=== PATIENT | female | born 1940 | race Caucasian/White ===

== ENCOUNTER → 2016-08-17 | Outpatient (REF) ==
[~2016-08-17] MED LIST: AMBIEN 10MG10 MG PO; MIRALAX 255 GM255 GM PO; PRILOSEC 20MG20 MG PO; SYNTHROID0.05 MG/TA PO; SYNTHROID0.075 MG/T PO
== END ==
LOC: ZLAB.WCH 15:41
DX: Z01.89 Encounter for other specified special examinations (principal)

== ENCOUNTER → 2017-08-24 | Outpatient (REF) | LOC: ZLAB.WCH 17:56 | DX: Z01.89 Encounter for other specified special examinations (principal) ==

== ENCOUNTER → 2018-02-08 | Outpatient (REF) ==
[2018-02-08 19:34] LABS: THYROID STIMULATING HORMONE 2.98 uIU/mL (0.465-4.680)
== END ==
LOC: ZLAB.WCH 18:18
PROVIDERS: Physician Assistant
DX: Z01.89 Encounter for other specified special examinations (principal)

== ENCOUNTER → 2018-09-04 | Outpatient (REF) ==
[2018-09-04 15:01] LABS: THYROID STIMULATING HORMONE 3.78 uIU/mL (0.465-4.680)
== END ==
LOC: ZLAB.WCH 14:15
PROVIDERS: Physician Assistant
DX: Z01.89 Encounter for other specified special examinations (principal)

== ENCOUNTER → 2021-12-14 | Outpatient (CLI) | payer MEDICARE, BC | LOC: COL.RAD 06:41 | DX: M47.812 Spondylosis without myelopathy or radiculopathy, cervical region (principal); M50.323 Other cervical disc degeneration at C6-C7 level; M48.02 Spinal stenosis, cervical region; R20.2 Paresthesia of skin | CPT/HCPCS: A9575 ==

== ENCOUNTER → 2021-12-30 | Outpatient (CLI) | payer MEDICARE, BC | LOC: COL.CARD 07:21 | DX: R27.0 Ataxia, unspecified (principal); R20.2 Paresthesia of skin; R29.2 Abnormal reflex ==